=== PATIENT | female | born 1965 | race Caucasian/White ===

== ENCOUNTER 2016-11-13 10:54 | Emergency (ER) | payer OTHER ==
[~2016-11-13] VITALS: Ht 167.6 cm; Wt 69.6 kg
[2016-11-13] MEDS ORDERED: ASPIRIN 81 MG TABLET CHEW PO ONE (11:30)
[2016-11-13 12:00] LABS: HEMOGLOBIN 14.6 g/dL (11.7-16.4)
[2016-11-13 12:11] LABS: BLOOD UREA NITROGEN 13 mg/dL (7-18)
[2016-11-13 12:15] LABS: IS PT STATUS REG ER OR PRE ER? YES
[2016-11-13] MEDS ORDERED: PLEASE ENTER ALLERGIES MC SCH ×2 (12:30)
[2016-11-13 13:50] VITALS: BP 113/69
== END 2016-11-13 14:40 | disposition home or self-care (01) ==
LOC: ED 13:45
DX: R07.89 Other chest pain (principal); F41.1 Generalized anxiety disorder; R06.4 Hyperventilation
CPT/HCPCS: 36415; 71020; 80048; 82040; 83880; 84484; 85025; 85379; 93005